=== PATIENT | male | born 1945 | race Caucasian/White ===

== ENCOUNTER 2019-10-12 12:26 | Emergency (ER) | payer MEDICARE, OTHER ==
[~2019-10-12] VITALS: Ht 177.8 cm; Wt 113.4 kg
[~2019-10-12 12:26] MED LIST: ATEN50TA; CLOP75TA28; FLUO0.05 TOP; GLIP-110; LOSA-69; NOR10T; SIMV10TA84; TRAZ50TA2; TRIA50TA2; [UNRECOGNIZED DRUG - CODE]
[2019-10-12] MEDS ORDERED: SODIUM CHLORIDE 0.9% 1,000 ML IV ONE (13:13)
[2019-10-12 14:13] LABS: Basophils # (auto) 0 uL; Basophils % (auto) 0.3 % (0.0-2.0); Eosinophils # (auto) 0 uL; Hematocrit 39.3 % (41.0-53.0); Hemoglobin 13.3 g/dL (13.5-17.5); Lymphocytes # (auto) 0.8 uL; Lymphocytes % (auto) 10.1 % (10.0-50.0); Mean Corpuscular Hgb Conc. 33.9 g/dL (32.0-36.0); Mean Corpuscular Volume 94.5 fL (80.0-100.0); Monocytes # (auto) 1.3 uL; Monocytes % (auto) 16.8 % (0.0-12.0); Neutrophils # (auto) 5.6 uL; Neutrophils % (auto) 72.8 % (37.0-80.0); Nucleated Red Blood Cells % 0.1 %; Platelet Count (auto) 155 10^3/uL (140-450); Red Blood Cells 4.16 10^6/uL (4.5-5.90); Red Cell Distribution Width 14.1 % (11.8-14.3); White Blood Cell 7.7 10^3/uL (4.4-10.8)
[2019-10-12 14:31] LABS: Albumin 2.4 g/dL (3.4-5.0); Calcium 8.3 mg/dL (8.5-10.1); Potassium 4.1 mmol/L (3.5-5.1)
[2019-10-12 14:33] LABS: BUN/Creatinine Ratio 21.1
[2019-10-12 14:34] LABS: INR 1.13 (0.9-1.15); Partial Thromboplastin Time 28.1 sec (23.64-32.05)
[2019-10-12 14:46] LABS: Bilirubin, Total 1.7 mg/dL (0.2-1.0); Total Protein 6.7 g/dL (6.4-8.2)
[2019-10-12 17:33] VITALS: BP 138/68
[2019-10-12 17:51] LABS: Urine Bacteria NONE SEEN /hpf (None Seen); Urine Blood Negative /uL (Negative); Urine Mucus FEW (None Seen); Urine Specific Gravity 1.023 (1.001-1.035); Urine WBC 1 /hpf (0 - 3)
== END 2019-10-12 17:32 | disposition home or self-care (01) ==
LOC: ER 12:26 → EDBD 12:26 → ER 17:32
DX: I12.9 Hypertensive chronic kidney disease with stage 1 through stage 4 chronic kidney disease, or unspecified chronic kidney disease (principal); E11.22 Type 2 diabetes mellitus with diabetic chronic kidney disease; N18.9 Chronic kidney disease, unspecified; M19.90 Unspecified osteoarthritis, unspecified site; Z86.73 Personal history of transient ischemic attack (TIA), and cerebral infarction without residual deficits
CPT/HCPCS: 36415; 71045; 74176; 80053; 81001; 83880; 85025; 85610; 85730; 93005